=== PATIENT | female | born 1975 | race Hispanic/Latino ===

== ENCOUNTER 2016-03-14 22:33 | Emergency (ER) | payer SELFPAY ==
[2016-03-15] MEDS ORDERED: Naproxen 500 MG TAB ONE (00:17)
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
== END 2016-03-15 00:25 | disposition home or self-care (01) ==
LOC: MADERS 22:33
DX: S80.02XA Contusion of left knee, initial encounter (principal); M54.5 Low back pain; E11.9 Type 2 diabetes mellitus without complications; J45.909 Unspecified asthma, uncomplicated; V43.52XA Car driver injured in collision with other type car in traffic accident, initial encounter; Y92.411 Interstate highway as the place of occurrence of the external cause
CPT/HCPCS: 99283